=== PATIENT | female | born 1975 | race Caucasian/White ===

== ENCOUNTER 2021-06-02 09:57 | Inpatient (IN) ==
[2021-06-02] MEDS ORDERED: cefOXitin 2,000 MG in Water for inj. (sterile) 10 ML IVP ONE (10:14)
[2021-06-02] MEDS ORDERED: Ringers Solution, Lactated 1,000 ML IVC SCH (10:15)
[2021-06-02] MEDS ORDERED: Acetaminophen IV 1,000 MG/100 ML BAG IVPB ONE (10:39)
[2021-06-02] MEDS ORDERED: Famotidine 20 MG/2 ML VIAL IVP ONE (10:39)
[2021-06-02] MEDS ORDERED: Lidocaine HCL 4 ML Topical Solution (Laryng-O-Jet Kit Sterile Pak) TP ONE (10:44)
[2021-06-02] MEDS ORDERED: *HR* Rocuronium Bromide 50 MG/5 ML VIAL ONE (10:44)
[2021-06-02] MEDS ORDERED: Lidocaine -MPF 2% 2 ML VIAL ONE (10:44)
[2021-06-02] MEDS ORDERED: Ondansetron 4 MG/2 ML VIAL ONE (10:44)
[2021-06-02] MEDS ORDERED: *HR* FentaNYL (PF) 100 MCG/2 ML VIAL ONE ×3 (10:46→15:14)
[2021-06-02] MEDS ORDERED: *HR* Propofol 200 MG/20 ML VIAL IVP ONE (10:46)
[2021-06-02] MEDS ORDERED: Ondansetron 4 MG/2 ML VIAL IVP PRN ×2 (10:50→17:02)
[2021-06-02] MEDS ORDERED: Dexmedetomidine HCl 400 MCG/100 ML MLS IVC ONE (12:29)
[2021-06-02] MEDS ORDERED: *HR* HYDROMORPHONE 2 MG/ML VIAL ONE (13:34)
[2021-06-02] MEDS: *HR* HYDROmorphone PF 0.5 MG/0.5 ML SYRINGE IVP PRN ×4 (13:59→14:14)
[2021-06-02] MEDS ORDERED: Ketorolac 30 MG/ML VIAL IVP ONE (14:21)
[2021-06-02] MEDS: *HR* HYDROmorphone (PF) 1 MG/ML SYRINGE IVP PRN ×4 (14:29→14:50)
[2021-06-02] MEDS: *HR* FentaNYL (PF) 100 MCG/2 ML VIAL IVP PRN ×4 (15:16→15:46)
[2021-06-02] MEDS ORDERED: Naloxone 0.4 MG/ML INJ IVP PRN (17:02)
[2021-06-02] MEDS ORDERED: polyethylene glycoL 3350 17 GM POWD.PACK PO PRN (17:02)
[2021-06-02] MEDS ORDERED: Sennosides 8.6 MG TABLET PO PRN (17:02)
[2021-06-02] MEDS ORDERED: Ibuprofen 600 MG TABLET PO SCH (18:00)
[2021-06-02] MEDS: *HR* OxyCODONE Immed Rel 5 MG TABLET PO PRN ×2 (18:21→21:58)
[2021-06-02] MEDS ORDERED: carBAMazepine 200 MG TABLET PO SCH (21:00)
[2021-06-02] MEDS ORDERED: Ipratropium/Albuterol Neb 3 ML IH SCH (21:00)
[2021-06-02] MEDS: carBAMazepine 200 MG TABLET PO SCH (21:50)
[2021-06-02] MEDS: Acetaminophen 325 MG TABLET PO SCH (21:51)
[2021-06-02] MEDS: Simethicone 80 MG TAB.CHEW PO PRN (22:37)
[2021-06-03] MEDS: *HR* OxyCODONE Immed Rel 5 MG TABLET PO PRN ×6 (01:58→21:33)
[2021-06-03] MEDS ORDERED: *HR* HYDROmorphone 2 MG/ML SYRINGE IVP ONE ×2 (02:01→21:59)
[2021-06-03] MEDS: Ringers Solution, Lactated 1,000 ML IVC SCH (02:11)
[2021-06-03 02:30] LABS: Basophils % 0.2 %; Hematocrit 24.2 % (35.3-44.9); Hemoglobin 7.2 g/dL (11.5-15.4); Immature Granulocytes % 0.3 % (0-4); Lymphocytes # 1.3 K/mcL (0.6-4.6); Lymphocytes % 11.5 %; Mean Corpuscular HGB Conc 29.8 g/dL (31.6-35.5); Mean Corpuscular Hemoglobin 24.1 pg (28.0-33.3); Mean Corpuscular Volume 80.9 fL (83.0-100.0); Mean Platelet Volume 9.9 fL (9.4-12.4); Monocytes # 1.1 K/mcL (0.0-1.3); Monocytes % 9.5 %; Platelet Count 278 K/mcL (140-400); Red Blood Count 2.99 M/mcL (3.82-4.97); Red Cell Distribution Width 13.8 % (11.5-14.5); Segmented Neutrophils % 78.5 %; White Blood Count 11.5 K/mcL (4.3-11.1)
[2021-06-03] MEDS: Acetaminophen 325 MG TABLET PO SCH (05:02)
[2021-06-03 06:55] LABS: Hematocrit 23.2 % (35.3-44.9); Hemoglobin 6.7 g/dL (11.5-15.4)
[2021-06-03] MEDS ORDERED: Acetaminophen 325 MG TABLET PO ONE (08:56)
[2021-06-03] MEDS ORDERED: Albuterol 2.5 MG/3 ML NEBULIZER IH PRN (09:00)
[2021-06-03] MEDS ORDERED: 0.9 % Sodium Chloride 250 ML ONE (09:14)
[2021-06-03] MEDS: Simethicone 80 MG TAB.CHEW PO PRN ×2 (09:16→18:33)
[2021-06-03] MEDS: carBAMazepine 200 MG TABLET PO SCH ×3 (09:16→20:19)
[2021-06-03] MEDS: Folic Acid 1 MG TABLET PO SCH (09:16)
[2021-06-03 09:55] LABS: Basophils % 0.2 %; Eosinophils % 0.2 %; Hematocrit 22.9 % (35.3-44.9); Hemoglobin 6.9 g/dL (11.5-15.4); Immature Granulocytes % 0.2 % (0-4); Lymphocytes # 1.7 K/mcL (0.6-4.6); Lymphocytes % 18.2 %; Mean Corpuscular HGB Conc 30.1 g/dL (31.6-35.5); Mean Corpuscular Hemoglobin 24.6 pg (28.0-33.3); Mean Corpuscular Volume 81.8 fL (83.0-100.0); Mean Platelet Volume 10.3 fL (9.4-12.4); Monocytes % 10.8 %; Neutrophils # 6.4 K/mcL (1.6-8.9); Platelet Count 290 K/mcL (140-400); Red Cell Distribution Width 13.8 % (11.5-14.5); Segmented Neutrophils % 70.4 %; White Blood Count 9.1 K/mcL (4.3-11.1)
[2021-06-03] MEDS: Isovue-370 500 ML BOTTLE IVP ONE (10:22)
[2021-06-03] MEDS ORDERED: *HR* HYDROmorphone (PF) 1 MG/ML SYRINGE IVP ONE (10:59)
[2021-06-04] MEDS: *HR* OxyCODONE Immed Rel 5 MG TABLET PO PRN ×3 (02:11→10:01)
[2021-06-04 02:45] LABS: Basophils % 0.3 %; Eosinophils # 0.1 K/mcL (0.0-0.6); Hematocrit 26.9 % (35.3-44.9); Hemoglobin 8.6 g/dL (11.5-15.4); Immature Granulocytes % 0.1 % (0-4); Lymphocytes # 1.6 K/mcL (0.6-4.6); Lymphocytes % 24.4 %; Mean Corpuscular Hemoglobin 26.1 pg (28.0-33.3); Mean Corpuscular Volume 81.5 fL (83.0-100.0); Mean Platelet Volume 10.3 fL (9.4-12.4); Monocytes # 0.8 K/mcL (0.0-1.3); Monocytes % 11.4 %; Neutrophils # 4.2 K/mcL (1.6-8.9); Platelet Count 232 K/mcL (140-400); Segmented Neutrophils % 62.8 %; White Blood Count 6.7 K/mcL (4.3-11.1)
[2021-06-04] MEDS: Ringers Solution, Lactated 1,000 ML IVC SCH ×4 (05:32→05:42)
[2021-06-04] MEDS: Acetaminophen 325 MG TABLET PO SCH (05:43)
[2021-06-04] MEDS: Simethicone 80 MG TAB.CHEW PO PRN (10:00)
[2021-06-04] MEDS: Folic Acid 1 MG TABLET PO SCH (10:01)
[2021-06-04] MEDS: carBAMazepine 200 MG TABLET PO SCH (10:01)
[2021-06-04 10:16] VITALS: BP 141/90; PULSE 81; TEMP 98.9; O2SAT 100
== END 2021-06-04 10:43 | disposition home or self-care (01) | DRG 743 ==
LOC: SAMDAY 09:57 → 1NENUPED 16:44
PROVIDERS: ADMIT Student in an Organized Health Care Education/Training Program; ATTEND Student in an Organized Health Care Education/Training Program